=== PATIENT | male | born 1975 | race Caucasian/White ===

== ENCOUNTER 2017-11-23 09:57 | Emergency (ER) | payer OTHER ==
[~2017-11-23] VITALS: Ht 177.8 cm; Wt 76.2 kg
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
[2017-11-23] MEDS ORDERED: ONDANSETRON HCL/PF 4 MG/2 ML VIAL ONE (10:18)
[2017-11-23] MEDS ORDERED: MORPHINE SULFATE INJ 4 MG/ML DISP.SYRIN ONE (10:19)
[2017-11-23] MEDS ORDERED: IV NS 0.9% 500 ML BAG IV ONE (10:30)
[2017-11-23] MEDS ORDERED: MORPHINE SULFATE INJ 2 MG/ML DISP.SYRIN IV ONE (10:30)
[2017-11-23] MEDS ORDERED: ONDANSETRON HCL/PF 4 MG/2 ML VIAL IVP ONE (10:30)
--- NOTE | 2017-11-23 10:30 | NUR ---
PATIENT STILL IN CT
[2017-11-23 12:00] VITALS: BP 124/70
[2017-11-23] MEDS ORDERED: AMOX/CLAVULANATE 875 MG TABLET PO ONE (12:00)
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
--- NOTE | 2017-11-23 12:03 | NUR ---
CALLED [facility] FOR TRANSFER - ALS RIG CODE 3 - ETA 30 MIN - TRIP # [id number]
[2017-11-23] MEDS ORDERED: AMOX/CLAVULANATE 875 MG TABLET ONE (12:08)
--- NOTE | 2017-11-23 12:29 | NUR ---
REPORT GIVEN TO NETO MONTENEGRO. PATIENT WAS PICKED UP BY AMBULANCE, REMAINS STABLE.
== END 2017-11-23 12:30 | disposition home or self-care (01) ==
LOC: ER 10:00
DX: S02.81XA Fracture of other specified skull and facial bones, right side, initial encounter for closed fracture (principal); S02.641A Fracture of ramus of right mandible, initial encounter for closed fracture; S01.81XA Laceration without foreign body of other part of head, initial encounter; S13.4XXA Sprain of ligaments of cervical spine, initial encounter; Z60.2 Problems related to living alone; W05.2XXA Fall from non-moving motorized mobility scooter, initial encounter; Y93.55 Activity, bike riding; Y92.413 State road as the place of occurrence of the external cause; Y99.8 Other external cause status
CPT/HCPCS: 12011; 70450; 70486; 71045; 72125; 72170; 96374; 96375; 99284; A4606; A6402; J2270; J2405; J7030; Z7610